=== PATIENT | male | born 1955 | race Caucasian/White ===

== ENCOUNTER 2017-11-14 12:07 | Emergency (ER) | payer OTHER ==
[2017-11-14 13:39] LABS: ABS Basophils 0 10^3/ul (0-0.2); ABS Eosinophils 0.1 10^3/ul (0-0.6); ABS Lymphocytes 0.3 10^3/ul (1.0-4.8); ABS Monocytes 0.7 10^3/ul (0-0.8); ABS Neutrophils 4.7 10^3/ul (1.5-7.7); ABS Nucleated RBC 0 10^3/ul; Eosinophil % 1.7 % (0-6); Hematocrit 27 % (42-52); Hemoglobin 8.9 g/dl (14.0-18.0); Lymphocyte % 4.7 % (25-47); Mean Corpuscular HGB Conc 33 g/dl (31-36); Mean Corpuscular Hemoglobin 31 pg (27-31); Mean Corpuscular Volume 94 fL (80-94); Mean Platelet Volume 8 um3 (7.4-10.4); Nucleated Red Blood Cells % 0.1; Platelet Count 210 10^3/ul (150-450); Red Blood Count 2.89 10^6/ul (4.0-5.4); Red Cell Distribution Width 18 % (10.5-15); White Blood Count 5.9 10^3/ul (3.5-10.8)
[2017-11-14 13:57] LABS: EGFR Non-African American 129.9 (>60)
--- NOTE | 2017-11-14 14:24 | RAD ---
INDICATION: Fatigue and hypotension, chest pain. COMPARISON: There are no prior studies available for comparison. TECHNIQUE: A portable view of the chest was obtained. The left costophrenic angle is cut off on the film limiting the study. FINDINGS: The heart appears to be within normal limits in size for this portable exam. There is a power port central venous catheter present. The catheter tip appears to project over the region of the right atrium. There is a small left upper lobe infiltrate. There is a trace right pleural effusion. IMPRESSION: 1. LIMITED STUDY. 2. SMALL LEFT UPPER LOBE INFILTRATE AND TRACE RIGHT PLEURAL EFFUSION.
[2017-11-14] MEDS ORDERED: Ciprofloxacin 400MG IVPREMIX(* 400 MG/200 ML BAG IVPB ONE (15:07)
[2017-11-14] MEDS ORDERED: Cefepime(*) 2 GM in NS 0.9% 50 ML* 50 ML IVPB ONE (15:07)
[2017-11-14] MEDS ORDERED: NS 0.9% 500 ML* 500 ML IV ONE (15:08)
[2017-11-14] MEDS ORDERED: Morphine INJ* 4 MG/ML 1 ML CARPUJECT IV ONE (15:12)
[2017-11-14] MEDS ORDERED: Ondansetron INJ* 2 MG/ML VIAL IV ONE (15:12)
[2017-11-14] MEDS: NS 0.9% 1000 ML* 2,000 ML IV ONE ×2 (15:39→15:40)
[2017-11-14] MEDS ORDERED: NS 0.9% 50 ML* 50 ML ONE (16:44)
[2017-11-14] MEDS ORDERED: Cefepime 2 GM in Dextrose(*) 2 GM/50 ML BAG IV ONE (17:00)
[2017-11-14] MEDS ORDERED: Magnesium Sulfate 2 GM IV* 2 GM/50 ML BAG IVPB ONE (17:29)
[2017-11-14 19:02] VITALS: BP 96/56
--- NOTE | 2017-11-14 21:39 | CONS ---
CC: Dr. Marks; fax #[phone]; Dr. Davidson * CONSULTATION REPORT: DATE OF CONSULT: 11/14/17 - EMERGENCY DEPT PROVIDER: Beatrice Wesley NP ATTENDING PHYSICIAN: Dr. Johnson (report dictated by Beatrice Wesley NP). REFERRING PHYSICIAN: Dr. Yost, Emergency Department. PRIMARY CARE PROVIDER: Dr. Marks. ONCOLOGIST: Dr. Babin oncologist at [facility]. REFERRING TO: Dr. Davidson, Sheet Taker. CONSULTATION REASON: Evaluation for admission for atrial fibrillation. HISTORY OF PRESENT ILLNESS: Mr. Aceves is a 62-year-old male with metastatic esophageal cancer, atrial fibrillation, PE and DVT, on Eliquis, who was at his oncologist, Dr. Babin's office today in [place], [place] for a followup and was found to have a heart rate of 145 and noted to be in rapid AFib and was recommended to go to the emergency department for further evaluation, in which the patient refused to do so. He was brought to [facility] Emergency Department by his daughter, who wanted him evaluated. In the Emergency Department at [facility], he was found to have a heart rate of 95 and was noted to be in sinus rhythm. The hospitalist service was asked to consult regarding possible admission as the patient also was noted to have a small left upper lobe infiltrate with possible pneumonia. The patient was evaluated in the emergency department. His daughter, Perlita King and his , Roxane Aceves, in which both of them are the healthcare proxies, who were at the bedside. The patient was adamant he did not want to stay for hospitalization and due to that he is back in a normal sinus rhythm and appears to be stable without any acute illness. I think it is reasonable the patient can be discharged home from the emergency department. In regards to the patient's possible small left upper lobe infiltrate, it is possible that this is pneumonia; however, I do have lower suspicion as he has no cough, fever , or chills. Reports lately, he has been in his baseline. In regards to the patient's atrial fibrillation, this is fairly new for him and he was diagnosed back in August when he was diagnosed with a PE and DVT and appears that he has been having paroxysmal atrial fibrillation. At that time, he was placed on metoprolol 50 mg p.o. daily. Per the patient, he crushes the pill and puts in his PEG tube and within 5 minutes, he feels terrible and has been noted by the and daughter that his blood pressure tends to drop systolically in the low 90s. The patient was planning on stopping this medication; however, he did have a dose this morning. The plan will be to send the patient home on metoprolol 12.5 mg p.o. b.i.d. and have him followup with Dr. Davidson. He is already anticoagulated on Eliquis. In regards to the patient's metastatic cancer, he just finished radiation on 06/30 and had a port placed, in which he is supposed to undergo chemotherapy; however, he has not been stable enough per his daughter to start chemo. He was hospitalized in [facility] approximately 2 weeks ago, where he had an 8- day hospitalization for possible GI bleed, which resolved on its own and the decision was to continue him on his Eliquis at that time. Per daughter on discharge of that hospitalization, he was supposed to be referred to fire observer, Dr. Davidson, but the daughter does not think that this happened on discharge. The patient does have a PEG tube placed and just was cleared in the last couple of days to take in thin liquids. Per daughter, she does not think that he is aspirating; however, I did discuss with them and recommend that he have a followup swallowing evaluation this week as she reports there was no plan for serial swallow evaluations in the future. PAST MEDICAL HISTORY: 1. PE and DVT, diagnosed in August 2017, currently on Eliquis. 2. Paroxysmal atrial fibrillation, diagnosed in August 2017. 3. History of metastatic esophageal cancer, diagnosed in 2016? status post PEG tube placement, completed his radiation treatment in early October. 4. Long-term history of tobacco and alcohol abuse. 5. History of recent GI bleed approximately 2 to 3 weeks ago, in which he had a hospitalization at [facility], in which he was discharged home on his Eliquis. CURRENT MEDICATIONS: 1. Multivitamin 1 tab p.o. daily. 2. Milk of magnesia 30 mL p.o. p.r.n. constipation. 3. Senna 1 tab p.o. b.i.d. 4. Lipitor 80 mg p.o. at bedtime. 5. Eliquis 5 mg p.o. b.i.d. 6. Oxycodone HCl 100 mg/5 mL, 1 mL p.o. q.4 hours p.r.n. 7. Metoprolol tartrate 50 mg p.o. b.i.d. 8. Omeprazole 20 mg p.o. b.i.d. 9. Reglan 5 mg p.o. t.i.d. ALLERGIES: No known allergies. ADVANCE DIRECTIVES: Full code. HEALTHCARE PROXY: His and daughter. REVIEW OF SYSTEMS: A 14-point review of systems was performed. All the pertinent positives and negatives are mentioned in the history of present illness. Otherwise are negative. PHYSICAL EXAMINATION: Vital Signs: Temperature 98.3, heart rate 90, respirations 18, pulse oximetry 98% on room air, blood pressure 102/69. General Appearance: Chronically ill 62-year-old male, sitting up in the side of emergency department bed, alert and oriented x3, in no acute distress. HEENT: Head is normocephalic, atraumatic. Pupils are equal and reactive to light. Oropharynx is clear. Moist mucous membranes. No noted oropharyngeal thrush. Neck: Supple. Cardiac: S1, S2. Regular rate and rhythm. Lungs: Clear to auscultation bilaterally. Good aeration throughout. No accessory muscle use. Abdomen: Soft, nontender, nondistended. There is a noted PEG tube intact with a clean, dry dressing. No noted erythema or skin breakdown around the PEG insertion site. Extremities: No clubbing, cyanosis, or edema noted. Skin: Warm, pink, dry. There is a noted right upper chest wall port that has a healing incision. No noted erythema or drainage. Appears to be healing well. Musculoskeletal: Moves all extremities. Strength is 5/5 throughout. Neuro: Alert and oriented x3. No focal deficits noted. RECOMMENDATIONS: I spoke with the patient and the daughter and the at length. At this point, the patient is stable to be discharged home from the emergency department. The plan will be to discharge him home on metoprolol 12.5 mg p.o. b.i.d. The and the daughter both take the vital signs and monitor him closely. The daughter is an RN. The patient will be referred to Dr. Davidson for a followup and the daughter plans to call Friday morning. He is currently anticoagulated on Eliquis. It is noted that his hemoglobin is low at 8.9 and 27; however, I do not have anything to compare to. There are no signs of any gastrointestinal bleeding. In regards to the patient's possible left upper lobe infiltrate, he has no obvious signs of pneumonia; however, the plan will be to treat the infiltrate in discussion with the attending physician and ER physician as well as a family. I have discussed this with Dr. Yost, who will be doing the discharge. The patient is to follow up with his primary care provider this week on , he has an appointment set previously. In the emergency department, he had electrolyte replacement for a magnesium of 1.6. The patient is stable to be discharged home from the emergency department, is not requiring admission at this time. BEATRICE WESLEY NP [id number]/RUI #: [id number] FANNY
--- NOTE | 2017-11-16 12:42 | ED ---
Celsa Stewart Julia, scribed for Jonathan Yost MD on 11/14/17 at 1512 . Complex/Multi-Sys Presentation - HPI Summary HPI Summary: This patient is a 62 year old M presenting to [facility] accompanied by and daughter with a chief complaint of chest pain, and a-fib and low BP . Pt reports mildly productive cough, dizziness, lightheaded, weak as of this morning. Patient denies changes in appetite. He is able to drink liquids but uses GI tube otherwise. The patient rates the pain 7/10 in severity. Pt was referred from Dr. Babin to see a heddle machine operator. Dr. Babin has discussed with Dr. Davidson about receive regular care. Daughter reports dx of esophageal CA (tumor 17.5 cm) around 2016 with metastases to left femur, liver, sternum , L4, L5 and lymph nodes. Pt receives radiation Comer. He was discharged from [facility] two weeks ago. He was there for seven days for a-fib and a GI bleed, for which he received 3 units of blood. His states his Hgb, Hct , and sodium are steady and improving. Pt has had PNA of R lower lung since 2016. Pt has history of PE. He was prescribed Metoprolol (50mg a day) when discharged from [facility]. - History Of Current Complaint Chief Complaint: EDChestPainROMI Time Seen by Provider: 11/14/17 13:41 Hx Obtained From: Patient, Family/Portrait Consultant Onset/Duration: Lasting Weeks, Still Present Timing: Constant Location: Pain At: - mid sternum Associated Signs And Symptoms: Positive: Other - a-fib and low BP productive cough, dizziness, lightheaded, weakness - Allergies/Home Medications Allergies/Adverse Reactions: Allergies Allergy/AdvReac Type Severity Reaction Status Date / Time No Known Allergies Allergy Verified 11/14/17 12:26 Home Medications: Home Medications Apixaban* [Eliquis*] 5 mg PO BID 11/14/17 [History Confirmed 11/14/17] Atorvastatin* [Lipitor*] 80 mg PO BEDTIME 11/14/17 [History Confirmed 11/14/17] Magnesium Hydroxide LIQ* [Milk of Magnesia LIQ*] 30 ml PO DAILY PRN 11/14/17 [ History Confirmed 11/14/17] Metoclopramide TAB* [Reglan TAB*] 5 mg PO TID 11/14/17 [History Confirmed ] Metoprolol Tartrate TAB* [Lopressor TAB*] 50 mg PO BID 11/14/17 [History Confirmed 11/14/17] Multivitamins/Minerals TAB* [Theragran/minerals TAB*] 1 tab PO DAILY 11/14/17 [ History Confirmed 11/14/17] Omeprazole CAP* [Prilosec CAP* 20 MG] 20 mg PO BID 11/14/17 [History Confirmed 11/14/17] Oxycodone HCl [Oxycodone HCl 100 mg/5 ml] 1 ml PO Q4HR PRN 11/14/17 [History Confirmed 11/14/17] Senna TAB* [Senokot TAB*] 1 tab PO BID 11/14/17 [History Confirmed 11/14/17] PMH/Surg Hx/FS Hx/Imm Hx Endocrine/Hematology History: Denies: Hx Diabetes Respiratory History: Reports: Hx Pneumonia, Hx Pulmonary Embolism - Cancer History Cancer Type, Location and Year: esophogeal CA with metastases to left femur, liver, sternum, L4, L5 and lymph nodes Infectious Disease History: No Infectious Disease History: Denies: Traveled Outside the [place] in Last 30 Days - Family History Known Family History: Positive: Diabetes - maternal - Social History Alcohol Use: None Alcohol Amount: none since August Substance Use Type: Reports: Marijuana, Prescribed Substance Use Comment - Amount & Last Used: Occassional Marijuana Smoking Status (MU): Light Every Day Tobacco Smoker Review of Systems Negative: Fever, Chills Negative: Erythema Negative: Sore Throat Cardiovascular: Other - low BP Positive: Palpitations - a-Fib, Chest Pain Positive: Cough. Negative: Shortness Of Breath Negative: Abdominal Pain, Vomiting, Nausea Negative: dysuria, hematuria Negative: Edema Negative: Rash Neurological: Other - dizziness/lightheaded All Other Systems Reviewed And Are Negative: Yes Physical Exam - Summary Physical Exam Summary: Constitutional: Well-developed, Well-nourished, Alert. (-) Distressed Skin: Warm, Dry HENT: Normocephalic; Atraumatic, dry mucous membranes Eyes: Conjunctiva normal Neck: Musculoskeletal ROM normal neck. (-) JVD, (-) Stridor, (-) Tracheal deviation Cardio: Rhythm regular, rate normal, Heart sounds normal; Intact distal pulses; The pedal pulses are 2+ and symmetric. Radial pulses are 2+ and symmetric. (-) Murmur Pulmonary/Chest wall: Effort normal. (-) Respiratory distress, (-) Wheezes, (-) Rales Abd: Soft, (-) Tenderness, (-) Distension, (-) Guarding, (-) Rebound Musculoskeletal: (-) Edema Lymph: (-) Cervical adenopathy Neuro: Alert, Oriented x3 Psych: Mood and affect Normal Triage Information Reviewed: Yes Vital Signs On Initial Exam: Initial Vitals Temp Pulse Resp BP Pulse Ox 97.8 F 99 18 91/61 99 11/14/17 12:12 11/14/17 12:12 11/14/17 12:12 11/14/17 12:12 11/14/17 12:12 Vital Signs Reviewed: Yes Diagnostics - Vital Signs Vital Signs Temp Pulse Resp BP Pulse Ox 11/14/17 14:30 89 22 92/65 100 11/14/17 14:00 88 22 90/62 100 11/14/17 13:35 13 97/65 11/14/17 12:12 97.8 F 99 18 91/61 99 - Laboratory Lab Results: Lab Results 11/14/17 11/14/17 11/14/17 Range/Units 13:30 13:30 13:30 WBC 5.9 (3.5-10.8) 10^3/ul RBC 2.89 L (4.0-5.4) 10^6/ul Hgb 8.9 L (14.0-18.0) g/dl Hct 27 L (42-52) % MCV 94 (80-94) fL MCH 31 (27-31) pg MCHC 33 (31-36) g/dl RDW 18 H (10.5-15) % Plt Count 210 (150-450) 10^3/ul MPV 8 (7.4-10.4) um3 Neut % (Auto) 81.0 (38-83) % Lymph % (Auto) 4.7 L (25-47) % Guthrie % (Auto) 12.1 H (1-9) % Eos % (Auto) 1.7 (0-6) % Baso % (Auto) 0.5 (0-2) % Absolute Neuts (auto) 4.7 (1.5-7.7) 10^3/ul Absolute Lymphs (auto) 0.3 L (1.0-4.8) 10^3/ul Absolute Monos (auto) 0.7 (0-0.8) 10^3/ul Absolute Eos (auto) 0.1 (0-0.6) 10^3/ul Absolute Basos (auto) 0 (0-0.2) 10^3/ul Absolute Nucleated RBC 0 10^3/ul Nucleated RBC % 0.1 Sodium 127 L (133-145) mmol/L Potassium 4.0 (3.5-5.0) mmol/L Chloride 98 L (101-111) mmol/L Carbon Dioxide 26 (22-32) mmol/L Anion Gap 3 (2-11) mmol/L BUN 11 (6-24) mg/dL Creatinine 0.63 L (0.67-1.17) mg/dL Est GFR ( Amer) 167.1 (>60) Est GFR (Non-Af Amer) 129.9 (>60) BUN/Creatinine Ratio 17.5 (8-20) Glucose 130 H (70-100) mg/dL Lactic Acid 1.3 (0.5-2.0) mmol/L Calcium 8.4 L (8.6-10.3) mg/dL Total Bilirubin 0.50 (0.2-1.0) mg/dL AST 12 L (13-39) U/L ALT 17 (7-52) U/L Alkaline Phosphatase 67 (34-104) U/L Troponin I 0.00 (<0.04) ng/mL Total Protein 6.7 (6.4-8.9) g/dL Albumin 2.5 L (3.2-5.2) g/dL Globulin 4.2 H (2-4) g/dL Albumin/Globulin Ratio 0.6 L (1-3) Result Diagrams: 11/14/17 13:30 11/14/17 13:30 Lab Statement: Any lab studies that have been ordered have been reviewed, and results considered in the medical decision making process. - Radiology CXR Radiology Interpretation Completed By: Radiologist - 1. LIMITED STUDY. 2. SMALL LEFT UPPER LOBE INFILTRATE AND TRACE RIGHT PLEURAL EFFUSION. ED Physician has reviewed this report. - EKG 1217 Cardiac Rate: NL - at 94 BPM EKG Rhythm: Sinus Rhythm EKG Interpretation: no STEMI Complex Multi-Symp Course/Dx Course Of Treatment: Pt presents with chest pain, a-fib and low BP . Pt reports mildly productive cough, dizziness, lightheaded, weak as of this morning. metastases to left femur, liver, sternum, L4, L5 and lymph nodes. Pt receives radiation Comer. He was discharged from [facility] two weeks ago. Pt has had PNA of R lower lung since 2016. He was prescribed Metoprolol (50mg a day) when discharged from [facility], two weeks ago. EKG is of no acute concern. CXR is indicitive of PNA in the L upper lung. Pt was given IV fluids, Zofran, magnesium, morphine, and cefepime. Pt was treated for flu despite negative flu test due to high pretest probability for influenza. Pt's BP improved to normotensive. Multiple calls to Dr. Davidson were made, none were returned (not senior controls technician). Dr. Black states no direct physician to physician communication occured. He states there is no need for cardio consult as pt is currently in NSR at 17:25. He was evaluated by hospitalist, Salome Mclean (BOILER SERVICE TECHNICIAN). She recommends discharge due to high risk of flu and flu burden in hospital. Pt and family is instructed to decrease Metoprolol to 12.5mg a day. Pt and family is agreeable with this plan. - Diagnoses Provider Diagnoses: PNA (pneumonia), Hypotension, Medication adverse effect Discharge - Discharge Plan Condition: Stable Disposition: HOME Prescriptions: Levofloxacin TAB* [Levaquin TAB*] 750 mg PO DAILY #5 tab Patient Education Materials: Hypotension (ED), Pneumonia (ED) Referrals: Marco A Marks MD [Primary Care Provider] - 2 Days Jose Davidson MD [Medical Doctor] - Additional Instructions: RETURN TO THE EMERGENCY DEPARTMENT FOR CHANGING OR WORSENING SYMPTOMS. Follow up with primary care provider in 2-3 days and follow up with Dr. Davidson Decrease Metoprolol to 12.5mg per day. The documentation as recorded by the Celsa escobar Julia accurately reflects the service I personally performed and the decisions made by , Jonathan Yost MD.
== END 2017-11-14 19:02 | disposition home or self-care (01) ==
LOC: ED 12:07
DX: J18.9 Pneumonia, unspecified organism (principal); I95.9 Hypotension, unspecified; T44.7X5A Adverse effect of beta-adrenoreceptor antagonists, initial encounter; R91.8 Other nonspecific abnormal finding of lung field; J90 Pleural effusion, not elsewhere classified; F17.200 Nicotine dependence, unspecified, uncomplicated
CPT/HCPCS: 36415; 71045; 80053; 83605; 83735; 84145; 84484; 85025; 86140; 93005; 96361; 96365; 96375; 96376; 99285; J0692; J0744; J2270; J2405; J3475

== ENCOUNTER 2017-12-25 12:07 | Inpatient (IN) | payer OTHER ==
[2017-12-25] MEDS ORDERED: Magnesium Sulf 4 GM/100 ML IV* 4,000 MG/100 ML BAG IVPB ONE (12:33)
[2017-12-25] MEDS ORDERED: fentaNYL PATCH 12 MCG/HR TRANSDERM SCH (13:00)
[2017-12-25] MEDS ORDERED: NS 0.9% w/ 40 Meq KCL 1000 ML* 1,000 ML IV SCH (13:00)
--- OUTSIDE RECORDS SUMMARY | 2017-12-25 13:56 | XMS REPORT ---
:1955 External Reference #:[id number] Author Organization [employer] Address [address] [place] [id number] Phone [phone] Care Team Providers Name Role Phone Marco A Marks MD Primary Care Physician Unavailable Payers Type Date Identification Numbers Payment Provider Subscriber Commercial Policy Number: [id number] [facility] George Aceves Group Number: [id number] [address] PayID: [id number] [place] [address] Problems Description No Information Social History Type Date Description Comments ETOH Use Denies alcohol use Recreational Drug Use Prescribed marijuana Smoking Light tobacco smoker (10 or fewer cigarettes/day) Allergies, Adverse Reactions, Alerts Date Description Reaction Status Severity Comments 12/03/2017 NKDA active 12/03/2017 Shellfish-derived Products active Medications Medication Date Status Form Strength Qnty SIG Indications Ordering Provider Amiodarone HCL 12/03 Active Tablets 200mg 60tab 1 by mouth I48.1 s twice a day Rubin Davidson, for 2 weeks M.DSunshine the one a day Jevity 1.5 Rikki 12/02 Active Liquid 3 can/day, weaning off Rubin Davidson M.D. Metoprolol Active Tablets 50mg 12.5 mg Unknown Tartrate /0000 (10/16 tab) by g tube twice a day Sennosides Active Tablets 8.6mg 1 po bid Unknown /0000 Eliquis 00 Active Tablets 5mg 1 by mouth Unknown /0000 once a day Omeprazole Active Capsules DR 20mg 1 by mouth Unknown /0000 twice every day Ondansetron Active Tablets 4mg dissolve Unknown /0000 Dispers one tablet orally every 6 hours as needed for nausea. Oxycodone HCL Active Solution 5mg/5ML 15 Unknown /0000 milliliters by mouth every 4 hours as needed pain (not using) Oxycodone HCL Active Concentrate 100mg/5ML take 1 Unknown /0000 milliliters by mouth every 4 hours as needed for cough, maximum6 ml per day Milk Of Active Suspension 7.75% 30 Unknown Magnesia /0000 milliliters oral every day as needed for constipatio n. Metoclopramide Active Tablets 5mg one tablet Unknown HCL /0000 Dispers every 8 hours Thera Vital M Active Tablets 1 by mouth Unknown /0000 every day Amoxicillin/Cla Hx Suspension 400-57mg/ 10.94 Unknown vulanate /0000 Rec 5ML milliliters Potassium - by g 12/02 tubetwice a day for 4 days Atorvastatin Hx Tablets 80mg 1 by mouth Unknown Calcium /0000 every day - 12/02 Fentanyl Hx Patches 72HR 25mcg/HR apply one Unknown /0000 patch once - every 3 Jevity 1 Rikki Hx Liquid at night Unknown /0000 thru g tube - 12/[address] Adult Hx [address] 81mg 1 by mouth Unknown Low Dose /0000 every day - 12/02 Levofloxacin Hx Tablets 750mg 1 by mouth Unknown /0000 every day - 12/02 Vital Signs Date Vital Result Comment 12/03/2017 Weight 176.00 lb Heart Rate 76 /min irreg BP Systolic 70 mmHg Rue reg cu BP Diastolic 52 mmHg Rue reg cu BP Systolic Sitting 72 mmHg Lue reg cuff BP Diastolic Sitting 50 mmHg Lue reg cuff BP Systolic Standing 66 mmHg Lue reg cuff BP Diastolic Standing 60 mmHg Lue reg cuff Respiratory Rate 15 /min Results Description No Information Procedures Date CPT Code Description Status 12/03/2017 18850 EKG Tracing & Interpretation Completed 04/20/2015 Colonoscopy Completed 05/18/2012 86721 Rad Exam; Foot Comp Completed 05/18/2012 37012 Rad Exam; Foot Limited Completed 04/13/2012 73670 Rad Exam; Foot Comp Completed 03/02/2012 86619 Amputation Toe MP JT Completed 03/02/2012 82567 Amputation Toe MP JT Completed 03/02/2012 69621 Amputation Toe MP JT Completed Encounters Type Date Location Provider CPT E/M Dx Office Visit 12/03/[address] [facility] Jose Davidson, 51578 R94.31 2:00p Teja Valadez I48.1 I95.1 Office Visit 08/17/2012 9:30a [facility], [address]58 895.0 C.MSeamus Valadez Office Visit 06/08/2012 9:15a [facility], 840[address] 895.0 C.M.Camille Valadez Plan of Care Future Appointment(s):12/30/2017 1:00 pm - Jose Davidson M.D. at [facility]12/16/2017 9:30 am - Jose Davidson M.D. at [facility]12/03/2017 - Jose Davidson M.D.R94.31 Abnormal electrocardiogram [ECG] [EKG]I48.1 Persistent atrial fibrillationNew Medication: Amiodarone HCL 200 mgNew Orders:CardioversionFollow up:1 rpvsmH90.1 Orthostatic hypotension
[2017-12-25] MEDS: Scopolamine 1.5 mg* PATCH TRANSDERM SCH ×2 (15:37→15:38)
[2017-12-25] MEDS ORDERED: Metoprolol Tartrate IV* 1 MG/ML 5 ML VIAL IV PRN (15:46)
[2017-12-25] MEDS: Morphine INJ* 2 MG/ML 1 ML CARPUJECT IV PRN ×2 (16:02→20:24)
[2017-12-25] MEDS: oxyCODONE ORAL.SOLN* 5 MG/5 ML UDC PRN ×2 (17:28→22:46)
[2017-12-25] MEDS: Metoclopramide TAB* 10 MG G TUBE SCH ×2 (17:29→23:10)
--- NOTE | 2017-12-25 18:11 | CONSULT ---
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 Davidson CC: Reason for consult: Atrial fibrillation SUBJECTIVE Mr. Aceves is a 62 year old man with a history of esophageal cancer and G tube , pulmonary embolism diagnosed late 2016 on eliquis, paroxysmal atrial fibrillation of questionable symptom status on amiodarone for rate/rhythm control. Patient is currently lethargic and unable to provide a history. History was provided by his daughter who is healthcare proxy and who are both at bedside. They have not noticed any recent tachycardia with vital signs. He was admitted from the hematology clinic with pancytopenia and severe electrolyte abnormalities as below and also with small bowel obstruction. He is receiving pRBC transfusion, electrolyte replacement and bowel rest. IV lopressor brought HR into 120's from nearly 150 but dropped BP to 85/56 from 100 /72. He had decreased eliquis from bid to qd at one point due ot what they decribe as coffee ground emesis and this improved after that but returned when increased back to BID. His daughter feels very uncomfortable with him continuing on NOAC due to no approved reversal agent. We could use pradaxa as it has an FDA approved reversal agent, other NOAC also have non-FDA approved reversal agents, we could even consider lower dose off label NOAC usage. She feels strongly about changing to warfarin which is ok from a cardiac standpoint. medication list reviewed verbally and bottles on 12/03/2017 Allergies:No Known Drug Allergy 12/03/17 Shellfish-derived Products 12/03/17 allergy list reviewed on 12/03/2017 Medical Problems: Hypertension Achalasia Esophageal Disorder - stricture Back Pain severe malnutrition Esophagus Cancer Pulmonary Embolism Anemia - acute blood loss Atrial Fibrillation Surgical Hx: EGD with biopsies - (09/15/2017) Transanal resection of low rectal polyp - (2014) Hand Surgery - L arthroplasty Gastric Feeding Tube - (09/15/2017) Port A cath insertion Toe Amputation - left 2009 FH: non-contributory SH: Personal Habits: Smoking: Light tobacco smoker (10 or fewer cigarettes/day) .Alcohol: Denies alcohol use.Drug Use: Prescribed marijuana. Medications Active Medications: Amiodarone HCl (Cordarone Tab*) 200 mg PO DAILY [facility] Fentanyl (Duragesic Patch 12 Mcg/Hr *) 12 mcg TRANSDERM Q72H [facility] Last Admin: 12/25/17 14:18 Dose: 12 mcg Heparin Sodium (Porcine) (Heparin Flush Port (Ivad)) 5 ml FLUSH DAILY [facility] PRN Reason: Protocol Potassium Chloride/Sodium Chloride (Ns 0.9% W/ 40 Meq Kcl 1000 Ml*) 1,000 mls @ 75 mls/hr IV PER RATE [facility] Metoclopramide HCl (Reglan Tab*) 5 mg G TUBE Q8H [facility] Last Admin: 12/25/17 17:29 Dose: 5 mg Metoprolol Tartrate (Lopressor Iv*) 5 mg IV Q6H PRN PRN Reason: BLOOD PRESSURE Last Admin: 12/25/17 16:02 Dose: 5 mg Morphine Sulfate (Morphine Inj (Syringe)*) 2 mg IV Q4H PRN PRN Reason: PAIN Last Admin: 12/25/17 16:02 Dose: 2 mg Ondansetron HCl (Zofran Inj*) 4 mg IV Q4H PRN PRN Reason: NAUSEA/VOMITING Oxycodone HCl (Oxycodone Oral.Soln*) 20 mg .SEE ORDER Q4H PRN PRN Reason: PAIN Last Admin: 12/25/17 17:28 Dose: 20 mg Pantoprazole Sodium (Protonix Iv*) 40 mg IV DAILY [facility] Pharmacy Profile Note (Fentanyl Patch Check Q Shift) 1 note N/A 0700,1900 [facility] Scopolamine (Transderm-Scop 1.5 Mg Patch*) 1 patch TRANSDERM Q72H [facility] Last Admin: 12/25/17 15:38 Dose: 1 patch Home Medications: Apixaban* [Eliquis*] 5 g G TUBE DAILY 11/14/17 [History Confirmed 12/25/17] Magnesium Hydroxide LIQ* [Milk of Magnesia LIQ*] 30 ml G TUBE DAILY PRN [History Confirmed 12/25/17] Metoclopramide TAB* [Reglan TAB*] 5 mg G TUBE Q8H 11/14/17 [History Confirmed ] Multivitamins/Minerals TAB* [Theragran/minerals TAB*] 1 tab G TUBE DAILY [History Confirmed 12/25/17] Oxycodone HCl [Oxycodone HCl 100 mg/5 ml] 1 ml G TUBE Q4HR PRN 11/14/17 [ History Confirmed 12/25/17] Senna TAB* [Senokot TAB*] 1 tab G TUBE BID 11/14/17 [History Confirmed 12/25/17] Amiodarone TAB* [Cordarone Tab*] 200 mg PO DAILY 12/16/17 [History Confirmed ] Famotidine SUSP* [Pepcid SUSP*] 20 mg J TUBE BID 12/16/17 [History Confirmed ] Potassium Chloride LIQUID* [Klor-Con LIQUID*] 20 meq G TUBE DAILY 12/25/17 [ History Confirmed 12/25/17] Review of Systems - Measurements Intake and Output: Intake and Output Last 24 Hours 12/23/17 12/24/17 12/25/17 12/26/17 06:59 06:59 06:59 06:59 Intake Total 0 Balance 0 Weight 178 lb 3.2 oz Intake: Oral 0 - Review of Systems Review of Systems Statement: unable to obtain ROS due to mental status Objective Vital Signs: Temp Pulse Resp BP Pulse Ox 98.3 F 122 20 85/56 99 12/25/17 15:22 12/25/17 15:22 12/25/17 17:28 12/25/17 15:22 12/25/17 15:22 Oxygen Devices in Use Now: None Appearance: ill appearing, lethargic Ears/Nose/Mouth/Throat: Clear Oropharnyx, Mucous Membranes Moist Neck: NL Appearance and Movements; NL JVP, Trachea Midline Respiratory: Symmetrical Chest Expansion and Respiratory Effort Cardiovascular: - - irregularly irreuglar, tachycardic, no isgnificant murmur, mild edema Abdominal: NL Sounds; No Tenderness; No Distention Extremities: No Clubbing, Cyanosis Skin: No Rash or Ulcers Neurological: - - lethargic, does not cooperate with exam Laboratory Results: 12/25/2017: wbc 0.6, hgb 7.5, plts 89 Na 118, k 3.4, cr 0.49 mg 1.5 alk phos 106, albumin 2.5 otherwise lft's normal Diagnostic Imaging: Cardiac Testing: Echocardiogram - (09/16/2017) This was a limited study for assessment of right heart size and function. Normal LV systolic function with no regional wall motion abnormalities and estimated LVEF 55-60%. Normal right chowdhury size and RV contractility. Trace pericardial effusion. Echocardiogram - (09/17/2017) Bubble study is inconclusive of interatrial shunt/PFO. LV cavity size and thickness is normal. No regional wall motion abnormalities. No evidence of LVOT obstruction. Global systolic function is normal, with an estimated EF 60-65%. Echocardiogram - (10/28/2017) Patient was in afib/flutter during the study with rapid heart rates. EF 55-60%. Mild MR. Small pericardial effusion. Pleural effusion is noted. Assuming RA pressure of 5 mm Hg, estimated pulmonary artery systolic pressure is 31 mmHg ( normal). Compared to recent TTE's from 09/2017, pleural effusion is now present. CT C/A/P 12/10/2017: findings consistent with esophageal carcinoma mild mediastinal adenopathy new or increasing b/l effusios R liver lobe and retroperitoneal adenopathy unchanged from prior multiple l3/l4 and new l1 bony lytic lesions asymmetric right changes enlargmeent under scapula may represent metastatic disease EKG Data: 12/25/2017: Rapid afib 147 bpm, rate related st changes 12/16/2017: NSR, LAE, rsr' v1/v2 Assessment/Plan Regarding patients atrial fibrillation, I would recommend: - Continue amiodarone 200 mg PO daily for rate/rhythm control - Start metoprolol through G tube 25 mg PO TID (ordered) with 25 mg PRN for rate control. Would hold off on further IV rate control medication. pRBC transfusion should help raise BP - Replace K and Mg to 4 and 2 respectively at least, he may convert to NSR with this - Other medical care per primary service - Once stable from a hematologic standpoint and no active bleeding would start warfarin goal INR 2-3 (see HPI for discussion) Thank you for allowing me to participate in the cardiovascular care of this patient. Please do not hesitate to contact me with questions or concerns.
[2017-12-25] MEDS ORDERED: Metoprolol Tartrate TAB* 25 MG PO PRN (18:17)
[2017-12-25] MEDS: Pantoprazole IV* 40 MG IV SCH (18:19)
[2017-12-25] MEDS: fentaNYL Patch Check Q Shift 1 NOTE SCH (19:27)
[2017-12-25] MEDS: Metoprolol Tartrate TAB* 25 MG PO SCH ×2 (19:31→20:57)
[2017-12-25] MEDS: NS 0.9% w/ 40 Meq KCL 1000 ML* 1,000 ML IV SCH (20:15)
[2017-12-25] MEDS: Ondansetron INJ* 2 MG/ML VIAL IV PRN (20:24)
--- NOTE | 2017-12-25 20:27 | RAD ---
INDICATION: Constipation, tenderness and distention. COMPARISON: Comparison is made with a prior outside study from November 07, 2017. TECHNIQUE: Supine and decubitus views of the abdomen were obtained. FINDINGS: The small bowel and colon appear nondistended. No free intraperitoneal air is seen. There is a moderate amount retained stool with a large amount of stool present within the rectosigmoid colon. No abnormal calcifications are seen. IMPRESSION: MODERATE AMOUNT RETAINED STOOL WITH A LARGE AMOUNT OF STOOL IN THE RECTOSIGMOID COLON.
[2017-12-26] MEDS ORDERED: Metoprolol Tartrate IV* 1 MG/ML 5 ML VIAL IV ONE (02:00)
[2017-12-26] MEDS: Metoprolol Tartrate TAB* 25 MG PO SCH (02:05)
[2017-12-26] MEDS: Ondansetron INJ* 2 MG/ML VIAL IV PRN ×2 (04:28→13:01)
[2017-12-26] MEDS: NS 0.9% w/ 40 Meq KCL 1000 ML* 1,000 ML IV SCH ×2 (04:29→17:11)
[2017-12-26] MEDS: Morphine INJ* 2 MG/ML 1 ML CARPUJECT IV PRN ×2 (04:29→10:04)
[2017-12-26 07:05] LABS: EGFR Non-African American 134.8 (>60)
[2017-12-26 07:13] LABS: Hematocrit 24 % (42-52); Hemoglobin 8.3 g/dl (14.0-18.0); Mean Corpuscular HGB Conc 34 g/dl (31-36); Mean Corpuscular Hemoglobin 27 pg (27-31); Mean Corpuscular Volume 80 fL (80-94); Mean Platelet Volume 9 um3 (7.4-10.4); Platelet Count 84 10^3/ul (150-450); Red Blood Count 3.06 10^6/ul (4.0-5.4); Red Cell Distribution Width 18 % (10.5-15); White Blood Count 0.2 10^3/ul (3.5-10.8)
[2017-12-26] MEDS: fentaNYL Patch Check Q Shift 1 NOTE SCH ×2 (07:16→19:24)
[2017-12-26 08:49] LABS: ABS Basophils 0 10^3/ul (0-0.2); ABS Eosinophils 0 10^3/ul (0-0.6); ABS Lymphocytes 0.1 10^3/ul (1.0-4.8); ABS Monocytes 0.1 10^3/ul (0-0.8); ABS Neutrophils 0.1 10^3/ul (1.5-7.7); ABS Nucleated RBC 0 10^3/ul; Eosinophil % 1.6 % (0-6); Lymphocyte % 27.1 % (25-47); Nucleated Red Blood Cells % 0
[2017-12-26] MEDS ORDERED: Amiodarone TAB* 200 MG PO SCH (09:00)
[2017-12-26] MEDS ORDERED: Polyethylene Glycol 3350* 17 GM PACKET G TUBE ONE (09:45)
[2017-12-26] MEDS ORDERED: Sodium Phosphate ADULT ENEMA* 118 ml bottle PR ONE (09:45)
[2017-12-26] MEDS ORDERED: Metoprolol Tartrate IV* 1 MG/ML 5 ML VIAL IV PRN (10:28)
[2017-12-26] MEDS ORDERED: Metoclopramide IV* 5 MG/ML 2 ML VIAL IV PRN (10:31)
[2017-12-26] MEDS: Metoclopramide TAB* 10 MG G TUBE SCH (10:32)
[2017-12-26] MEDS ORDERED: Magnesium Sulfate IV* 3 GM in NS 0.9% 100 ML* 100 ML IVPB ONE (10:33)
--- NOTE | 2017-12-26 10:45 | PN ---
Progress Note - Progress Note Date of Service: 12/26/17 SOAP: Subjective: []chemotherapy one week ago and did well first 2 days. Then progressive nausea, fatigue and then mental status changes. Office with pancytopenia, hyponatremia, low Mg and K. Rapid afib. Stable today, appears comfortable. No vomiting, no BM. He tried to manually dis impact himself this am. Daughter in room with him. No fevers Amiodarone HCl (Cordarone Tab*) 200 mg PO DAILY [facility] Fentanyl (Duragesic Patch 12 Mcg/Hr *) 12 mcg TRANSDERM Q72H [facility] Last Admin: 12/25/17 14:18 Dose: 12 mcg Filgrastim (Neupogen(Nf)) 480 mcg SUBCUT DAILY [facility] Stop: 01/01/18 08:59 Heparin Sodium (Porcine) (Heparin Flush Port (Ivad)) 5 ml FLUSH DAILY [facility] PRN Reason: Protocol Potassium Chloride/Sodium Chloride (Ns 0.9% W/ 40 Meq Kcl 1000 Ml*) 1,000 mls @ 100 mls/hr IV PER RATE [facility] Levofloxacin/Dextrose (Levaquin 500 Mg Ivpremix(*)) 500 mg in 100 mls @ 100 mls /hr IVPB Q24H [facility] Magnesium Sulfate 3 gm/ Sodium (Chloride) 106 mls @ 53 mls/hr IVPB ONCE ONE Stop: 12/26/17 12:32 Metoclopramide HCl (Reglan Iv*) 10 mg IV Q6H PRN PRN Reason: NAUSEA/VOMITING Metoprolol Tartrate (Lopressor Iv*) 5 mg IV Q6H PRN PRN Reason: BLOOD PRESSURE Morphine Sulfate (Morphine Inj (Syringe)*) 2 mg IV Q4H PRN PRN Reason: PAIN Last Admin: 12/26/17 10:04 Dose: 2 mg Ondansetron HCl (Zofran Inj*) 4 mg IV Q4H PRN PRN Reason: NAUSEA/VOMITING Last Admin: 12/26/17 04:28 Dose: 4 mg Oxycodone HCl (Oxycodone Oral.Soln*) 20 mg .SEE ORDER Q4H PRN PRN Reason: PAIN Last Admin: 12/25/17 22:46 Dose: 20 mg Pantoprazole Sodium (Protonix Iv*) 40 mg IV DAILY [facility] Last Admin: 12/25/17 18:19 Dose: 40 mg Pharmacy Profile Note (Fentanyl Patch Check Q Shift) 1 note N/A 0700,1900 [facility] Last Admin: 12/26/17 07:16 Dose: 1 note Objective: [] Vital Signs Temp Pulse Resp BP Pulse Ox 98.2 F 102 18 112/62 93 12/26/17 04:28 12/26/17 04:28 12/26/17 10:04 12/26/17 04:28 12/26/17 04:28 HEENT: mouth dry, no lesions No JVD RRR S1S2 in 80s CTA + but decreased BS, non tender, stool palpable lower abd PGG, bile filled Ext Tr edema Neuro - responsive but sleeping mostly Assessment: []62 year old with esophageal cancer and a-fib. Presents on day 8 of cycle 1 Carbo/Taxol with impacted bowl, dehydration and electrolyte disturbance as well as pancytopenia. I suspect ileus second to neutropenia compounded by dehydration and stool impaction. Plan: []1. Pancytopenia - Tx 1 U PRBC - Neupogen 480 mcg daily - plts stable 2. GI. - Given Miralax - Will allow Fleet enema though neutropenic - NPO until improved GI f(x) but can give medication through PEG - Reglan 10 mg IV q 6 and hold scopalamine 3. FEN. - IVF at 100 cc per hr - Replete Mg today 3 gm IV 4. Cardiac - Amiodarone per PEG - Will give Metoprolol 5 mg IV q 6 5. ID. Levoquin 500 mg daily for colitis.
[2017-12-26] MEDS ORDERED: Levofloxacin 500 MG IVPREMIX(* 500 MG/100 ML BAG IVPB SCH (11:00)
[2017-12-26] MEDS ORDERED: Magnesium Sulfate 2 GM IV IVPB ONE (11:00)
[2017-12-26] MEDS: Pantoprazole IV* 40 MG IV SCH (11:25)
[2017-12-26] MEDS ORDERED: Magnesium Sulfate 1 GM IV* 1 GM/100 ML BAG IV ONE (12:00)
[2017-12-26] MEDS: Metoclopramide IV* 5 MG/ML 2 ML VIAL IV SCH ×2 (17:11→21:25)
[2017-12-27] MEDS: Morphine INJ* 2 MG/ML 1 ML CARPUJECT IV PRN ×2 (03:38→07:47)
[2017-12-27] MEDS ORDERED: CEFEPIME* 2 GM in Dextrose* 50 ml IV ONE (04:00)
[2017-12-27 04:41] LABS: Hematocrit 21 % (42-52); Hemoglobin 7.1 g/dl (14.0-18.0); Mean Corpuscular HGB Conc 34 g/dl (31-36); Mean Corpuscular Hemoglobin 27 pg (27-31); Mean Corpuscular Volume 81 fL (80-94); Mean Platelet Volume 8 um3 (7.4-10.4); Platelet Count 64 10^3/ul (150-450); Red Blood Count 2.61 10^6/ul (4.0-5.4); Red Cell Distribution Width 18 % (10.5-15); White Blood Count 0.2 10^3/ul (3.5-10.8)
[2017-12-27 04:43] LABS: EGFR Non-African American 140.1 (>60)
[2017-12-27 05:39] LABS: Monocytes % 48 % (0-7)
[2017-12-27] MEDS: fentaNYL Patch Check Q Shift 1 NOTE SCH ×2 (07:04→18:39)
[2017-12-27] MEDS: Metoclopramide IV* 5 MG/ML 2 ML VIAL IV SCH ×4 (08:49→21:55)
[2017-12-27] MEDS: FILGRASTIM-SNDZ* 480 MCG/0.8 ML SYRINGE SUBCUT SCH (08:49)
[2017-12-27] MEDS: Pantoprazole IV* 40 MG IV SCH (08:49)
[2017-12-27] MEDS: Cefepime 2 GM in Dextrose(*) 2 GM/50 ML BAG IV SCH ×2 (08:49→16:23)
[2017-12-27] MEDS: Amiodarone TAB* 200 MG G TUBE SCH (08:49)
[2017-12-27] MEDS: NS 0.9% w/ 40 Meq KCL 1000 ML* 1,000 ML IV SCH (08:50)
--- NOTE | 2017-12-27 08:57 | PN ---
Progress Note - Progress Note Date of Service: 12/27/17 SOAP: Subjective: []Better today. Had 4 BM yesterday. Dry mouth, no nausea. Pain has been an issues. No fevers. No SOB Amiodarone HCl (Cordarone Tab*) 200 mg G TUBE DAILY [facility] Last Admin: 12/27/17 08:49 Dose: 200 mg Fentanyl (Duragesic Patch 12 Mcg/Hr *) 25 mcg TRANSDERM Q72H [facility] Filgrastim-Sndz (Zarxio*) 480 mcg SUBCUT DAILY [facility] Stop: 01/01/18 08:59 Last Admin: 12/27/17 08:49 Dose: 480 mcg Heparin Sodium (Porcine) (Heparin Flush Port (Ivad)) 5 ml FLUSH DAILY [facility] PRN Reason: Protocol Last Admin: 12/26/17 11:09 Dose: Not Given Cefepime HCl (Maxipime 2 Gm In Dextrose Duplex (*)) 2 gm in 50 mls @ 100 mls/ hr IV Q8H [facility] Last Admin: 12/27/17 08:49 Dose: 100 mls/hr Magnesium Sulfate (Magnesium Sulf 4 Gm/100 Ml Iv*) 4,000 mg in 100 mls @ 33.333 mls/hr IVPB ONCE ONE Stop: 12/27/17 11:49 Sodium Chloride (Ns 0.9% 1000 Ml*) 1,000 mls @ 150 mls/hr IV PER RATE [facility] Metoclopramide HCl (Reglan Iv*) 10 mg IV QID [facility] Last Admin: 12/27/17 08:49 Dose: 10 mg Metoprolol Tartrate (Lopressor Iv*) 5 mg IV Q6H PRN PRN Reason: BLOOD PRESSURE Morphine Sulfate (Morphine Inj (Syringe)*) 2 mg IV Q4H PRN PRN Reason: PAIN Last Admin: 12/27/17 07:47 Dose: 2 mg Ondansetron HCl (Zofran Inj*) 4 mg IV Q4H PRN PRN Reason: NAUSEA/VOMITING Last Admin: 12/26/17 13:01 Dose: 4 mg Oxycodone HCl (Oxycodone Oral.Soln*) 20 mg .SEE ORDER Q4H PRN PRN Reason: PAIN Last Admin: 12/25/17 22:46 Dose: 20 mg Pantoprazole Sodium (Protonix Iv*) 40 mg IV DAILY [facility] Last Admin: 12/27/17 08:49 Dose: 40 mg Pharmacy Profile Note (Fentanyl Patch Check Q Shift) 1 note N/A 0700,1900 [facility] Last Admin: 12/27/17 07:04 Dose: 1 note Senna/Docusate Sodium (Sennokot-S(Nf)) 1 tab PO BEDTIME [facility] Objective: []Vital Signs Temp Pulse Resp BP Pulse Ox 99.7 F 97 20 97/54 97 12/27/17 07:21 12/27/17 07:21 12/27/17 08:50 12/27/17 07:21 12/27/17 07:21 HEENT: mouth dry, no lesions No JVD RRR S1S2 in 80s CTA Increased BS from yesterday, mild tenderness. PGG, bile filled Ext Tr edema Neuro - responsive but sleeping mostly Assessment: []62 year old with esophageal cancer and a-fib. Presents on day 8 of cycle 1 Carbo/Taxol with impacted bowl, dehydration and electrolyte disturbance as well as pancytopenia. I suspect ileus second to neutropenia compounded by dehydration and stool impaction. Today improved BM and feels better, improved BS but still with high residuals in PEG. Plan: []1. Progressive anemia. ddx: marrow suppression and hydration vs loss from esophageal tumor. - Tx 2 U PRBC - IV PPI 2. Pancytopenia. No improvement - Neupogen 480 mcg daily 2. Constipation. - Given Miralax add Zee/Colace - NPO until improved GI f(x) but can give medication through PEG - Reglan 10 mg IV q 6 3. FEN. - IVF at 150 cc per hr - Replete Mg today 4 gm IV - Stop IV potassium 4. Cardiac - Amiodarone per PEG - Will give Metoprolol 5 mg IV q 6 5. ID. Fever, now on Cefepime and cultures pending. 6. Pain. Increase Fentanyl to 25 mcg
[2017-12-27] MEDS ORDERED: Magnesium Sulf 4 GM/100 ML IV* 4,000 MG/100 ML BAG IVPB ONE (09:00)
[2017-12-27] MEDS ORDERED: fentaNYL PATCH 12 MCG/HR TRANSDERM SCH (09:00)
[2017-12-27] MEDS: oxyCODONE ORAL.SOLN* 5 MG/5 ML UDC PRN ×3 (09:07→18:39)
[2017-12-27] MEDS: fentaNYL PATCH 25 MCG/HR TRANSDERM SCH (10:07)
[2017-12-27] MEDS: NS 0.9% 1000 ML* 1,000 ML IV SCH ×2 (10:10→22:07)
[2017-12-27] MEDS ORDERED: Metoprolol Tartrate IV* 1 MG/ML 5 ML VIAL IV ONE (15:00)
[2017-12-27] MEDS: Metoprolol Tartrate IV* 1 MG/ML 5 ML VIAL IV PRN ×2 (20:17→21:54)
[2017-12-27] MEDS ORDERED: Docusate CAP* 100 MG PO SCH (21:00)
[2017-12-27] MEDS: Senna TAB PO SCH (22:07)
[2017-12-28] MEDS: Cefepime 2 GM in Dextrose(*) 2 GM/50 ML BAG IV SCH ×3 (00:16→15:23)
[2017-12-28] MEDS: Metoprolol Tartrate IV* 1 MG/ML 5 ML VIAL IV PRN (05:34)
[2017-12-28 06:26] LABS: EGFR Non-African American 148.8 (>60)
[2017-12-28 06:27] LABS: ABS Basophils 0 10^3/ul (0-0.2); ABS Eosinophils 0 10^3/ul (0-0.6); ABS Lymphocytes 0.1 10^3/ul (1.0-4.8); ABS Monocytes 0.4 10^3/ul (0-0.8); ABS Neutrophils 0.3 10^3/ul (1.5-7.7); ABS Nucleated RBC 0 10^3/ul
[2017-12-28 06:50] LABS: Monocytes % 43 % (0-7)
[2017-12-28 06:51] LABS: Eosinophil % 2.5 % (0-6); Hematocrit 31 % (42-52); Hemoglobin 10.6 g/dl (14.0-18.0); Lymphocyte % 18.3 % (25-47); Mean Corpuscular HGB Conc 34 g/dl (31-36); Mean Corpuscular Hemoglobin 28 pg (27-31); Mean Corpuscular Volume 83 fL (80-94); Mean Platelet Volume 8 um3 (7.4-10.4); Platelet Count 83 10^3/ul (150-450); Red Cell Distribution Width 18 % (10.5-15); White Blood Count 0.8 10^3/ul (3.5-10.8)
[2017-12-28] MEDS: fentaNYL Patch Check Q Shift 1 NOTE SCH ×2 (07:04→19:05)
[2017-12-28] MEDS: oxyCODONE ORAL.SOLN* 5 MG/5 ML UDC PRN ×3 (07:27→20:41)
[2017-12-28] MEDS: Enoxaparin(*) 80 MG/0.8 ML SYR SUBCUT SCH ×2 (09:03→20:40)
[2017-12-28] MEDS: Metoclopramide IV* 5 MG/ML 2 ML VIAL IV SCH (09:04)
[2017-12-28] MEDS: Pantoprazole IV* 40 MG IV SCH (09:04)
[2017-12-28] MEDS: FILGRASTIM-SNDZ* 480 MCG/0.8 ML SYRINGE SUBCUT SCH (09:04)
[2017-12-28] MEDS: Amiodarone TAB* 200 MG G TUBE SCH (09:04)
[2017-12-28] MEDS ORDERED: Metoprolol Tartrate IV* 1 MG/ML 5 ML VIAL IV ONE (10:00)
[2017-12-28] MEDS ORDERED: Furosemide IV* 10 MG/ML 2 ML VIAL (20 MG) IV ONE (10:19)
[2017-12-28] MEDS ORDERED: Magnesium Sulf 4 GM/100 ML IV* 4,000 MG/100 ML BAG IVPB ONE (10:20)
[2017-12-28] MEDS ORDERED: Metoclopramide TAB* 10 MG PO PRN (10:27)
--- NOTE | 2017-12-28 10:27 | PN ---
Progress Note - Progress Note Date of Service: 12/28/17 SOAP: Subjective: []Weak and wants to eat. Better overall. Has had high HR. Bowls moved. Not in pain. Breathing has been fine. No nausea. Not walking much, is up in chair this am. Amiodarone HCl (Cordarone Tab*) 200 mg G TUBE DAILY [facility] Last Admin: 12/28/17 09:04 Dose: 200 mg Docusate Sodium (Colace Liq*) 100 mg PO BEDTIME [facility] Enoxaparin Sodium (Lovenox(*)) 80 mg SUBCUT Q12H [facility] Last Admin: 12/28/17 09:03 Dose: 80 mg Fentanyl (Duragesic Patch 25 Mcg/Hr*) 25 mcg TRANSDERM Q72H [facility] Last Admin: 12/27/17 10:07 Dose: 25 mcg Filgrastim-Sndz (Zarxio*) 480 mcg SUBCUT DAILY [facility] Stop: 01/01/18 08:59 Last Admin: 12/28/17 09:04 Dose: 480 mcg Furosemide (Lasix Iv*) 20 mg IV ONCE ONE Stop: 12/28/17 10:20 Heparin Sodium (Porcine) (Heparin Flush Port (Ivad)) 5 ml FLUSH DAILY [facility] PRN Reason: Protocol Last Admin: 12/28/17 09:04 Dose: Not Given Cefepime HCl (Maxipime 2 Gm In Dextrose Duplex (*)) 2 gm in 50 mls @ 100 mls/ hr IV Q8H [facility] Last Admin: 12/28/17 07:28 Dose: 100 mls/hr Magnesium Sulfate (Magnesium Sulf 4 Gm/100 Ml Iv*) 4,000 mg in 100 mls @ 33.333 mls/hr IVPB ONCE ONE Stop: 12/28/17 13:19 Metoclopramide HCl (Reglan Iv*) 10 mg IV QID [facility] Last Admin: 12/28/17 09:04 Dose: 10 mg Morphine Sulfate (Morphine Inj (Syringe)*) 2 mg IV Q4H PRN PRN Reason: PAIN Last Admin: 12/27/17 07:47 Dose: 2 mg Ondansetron HCl (Zofran Inj*) 4 mg IV Q4H PRN PRN Reason: NAUSEA/VOMITING Last Admin: 12/26/17 13:01 Dose: 4 mg Oxycodone HCl (Oxycodone Oral.Soln*) 20 mg .SEE ORDER Q4H PRN PRN Reason: PAIN Last Admin: 12/28/17 07:27 Dose: 20 mg Pantoprazole Sodium (Protonix Iv*) 40 mg IV DAILY [facility] Last Admin: 12/28/17 09:04 Dose: 40 mg Pharmacy Profile Note (Fentanyl Patch Check Q Shift) 1 note N/A 0700,1900 [facility] Last Admin: 12/28/17 07:04 Dose: 1 note Senna (Senokot Tab*) 1 tab PO BEDTIME [facility] Last Admin: 12/27/17 22:07 Dose: 1 tab Warfarin Sodium (Coumadin Tab(*)) 4 mg PO DAILY@1700 [facility] PRN Reason: Protocol Objective: [] Vital Signs Temp Pulse Resp BP Pulse Ox 98.2 F 142 18 103/68 96 12/28/17 07:49 12/28/17 07:49 12/28/17 09:32 12/28/17 07:49 12/28/17 07:49 HEENT: mouth moist, no lesions No JVD Irreg S1S2 in 150s crackles at base Increased BS, NT Ext Tr edema Neuro - baeline MS, non focal. Assessment: []62 year old with esophageal cancer and a-fib. Cycle 1 Carbo/Taxol with admission for impacted bowl, dehydration and electrolyte disturbance as well as pancytopenia. Improving today with normal bowl function and increased blood counts. He has had a-fib with increased HR. Plan: []1. Anemia improved and will follow CBC 2. Pancytopenia. Improving, Neupogen until ANC > 1000 2. GI. Improved. - Miralax + Zee/Colace - Start TF w/ Osmolite at 40 cc/hr - Clear liquid diet. - Reglan to 10 po q6 prn. 3. FEN. Fluid overload - Stop IVF, Lasix 20 IV x 1 - Replete Mg today 4 gm IV - Follow potassium 4. Cardiac. Increased HR - Amiodarone per PEG - Metoprolol 25 mg q 6 po and 5 mg IV prn for HR > 150 - Cardiology follow up today 5. ID. Fever, Cefepime until ANC > 1500 and cultures pending. 6. Pain. Stable w/ Fentanyl at 25 mcg 7. Anicoagulation. Starting Coumadin and Lovenox today, d/c on Coumadin.
[2017-12-28] MEDS ORDERED: Metoclopramide LIQ* 10 MG/10 ML ORAL.SOLN PEG TUBE PRN (10:31)
[2017-12-28 11:42] LABS: EGFR Non-African American 169.6 (>60)
[2017-12-28] MEDS ORDERED: Digoxin IV* 0.5 MG/2 ML AMP (0.25 MG/ML) IV SLOW PU ONE ×3 (11:45→21:01)
[2017-12-28] MEDS ORDERED: Potassium Chloride LIQUID* 20 MEQ PACKET PO ONE (11:47)
--- NOTE | 2017-12-28 12:06 | PN ---
Subjective Date of Service: 12/28/17 Interval History: f/u atrial fibrillation Patient had been in sinus rhythm, now back in rapid atrial fibrillation rate 140 -150's at rest Patient feels weakened he attributes to not being able to eat No cp or palpitations Medications Active Medications: Amiodarone HCl (Cordarone Tab*) 200 mg G TUBE DAILY [facility] Last Admin: 12/28/17 09:04 Dose: 200 mg Docusate Sodium (Colace Liq*) 100 mg PO BEDTIME [facility] Enoxaparin Sodium (Lovenox(*)) 80 mg SUBCUT Q12H [facility] Last Admin: 12/28/17 09:03 Dose: 80 mg Fentanyl (Duragesic Patch 25 Mcg/Hr*) 25 mcg TRANSDERM Q72H [facility] Last Admin: 12/27/17 10:07 Dose: 25 mcg Filgrastim-Sndz (Zarxio*) 480 mcg SUBCUT DAILY [facility] Stop: 01/01/18 08:59 Last Admin: 12/28/17 09:04 Dose: 480 mcg Heparin Sodium (Porcine) (Heparin Flush Port (Ivad)) 5 ml FLUSH DAILY [facility] PRN Reason: Protocol Last Admin: 12/28/17 09:04 Dose: Not Given Cefepime HCl (Maxipime 2 Gm In Dextrose Duplex (*)) 2 gm in 50 mls @ 100 mls/ hr IV Q8H [facility] Last Admin: 12/28/17 07:28 Dose: 100 mls/hr Magnesium Sulfate (Magnesium Sulf 4 Gm/100 Ml Iv*) 4,000 mg in 100 mls @ 33.333 mls/hr IVPB ONCE ONE Stop: 12/28/17 13:19 Last Admin: 12/28/17 11:26 Dose: 33.333 mls/hr Metoclopramide HCl (Reglan Liq*) 10 mg PEG TUBE Q6H PRN PRN Reason: NAUSEA Metoprolol Tartrate (Lopressor Tab*) 25 mg PEG TUBE QID [facility] Morphine Sulfate (Morphine Inj (Syringe)*) 2 mg IV Q4H PRN PRN Reason: PAIN Last Admin: 12/27/17 07:47 Dose: 2 mg Ondansetron HCl (Zofran Inj*) 4 mg IV Q4H PRN PRN Reason: NAUSEA/VOMITING Last Admin: 12/26/17 13:01 Dose: 4 mg Oxycodone HCl (Oxycodone Oral.Soln*) 20 mg .SEE ORDER Q4H PRN PRN Reason: PAIN Last Admin: 12/28/17 07:27 Dose: 20 mg Pantoprazole Sodium (Protonix Iv*) 40 mg IV DAILY [facility] Last Admin: 12/28/17 09:04 Dose: 40 mg Pharmacy Profile Note (Fentanyl Patch Check Q Shift) 1 note N/A 0700,1900 [facility] Last Admin: 12/28/17 07:04 Dose: 1 note Senna (Senokot Tab*) 1 tab PO BEDTIME [facility] Last Admin: 12/27/17 22:07 Dose: 1 tab Warfarin Sodium (Coumadin Tab(*)) 4 mg PEG TUBE DAILY@1700 [facility] PRN Reason: Protocol Objective Vital Signs: Temp Pulse Resp BP Pulse Ox 98.2 F 142 18 103/68 96 12/28/17 07:49 12/28/17 07:49 12/28/17 09:32 12/28/17 07:49 12/28/17 07:49 Oxygen Devices in Use Now: None Appearance: ill appearing, conversant Ears/Nose/Mouth/Throat: Clear Oropharnyx, Mucous Membranes Moist Neck: NL Appearance and Movements; NL JVP, Trachea Midline Respiratory: Symmetrical Chest Expansion and Respiratory Effort Cardiovascular: - - irregularly irreuglar, tachycardic, no isgnificant murmur, mild edema Abdominal: NL Sounds; No Tenderness; No Distention Extremities: No Clubbing, Cyanosis Skin: No Rash or Ulcers Neurological: - - lethargic, does not cooperate with exam Laboratory Results: 12/28/17 05:55 12/28/17 11:15 mg 1.6 Total Bilirubin 0.80 mg/dL (0.2-1.0) 12/28/17 11:15 AST 11 U/L (13-39) L 12/28/17 11:15 ALT 12 U/L (7-52) 12/28/17 11:15 Alkaline Phosphatase 65 U/L (34-104) 12/28/17 11:15 Total Protein 4.8 g/dL (6.4-8.9) L 12/28/17 11:15 Albumin 2.0 g/dL (3.2-5.2) L 12/28/17 11:15 Globulin 2.8 g/dL (2-4) 12/28/17 11:15 Albumin/Globulin Ratio 0.7 (1-3) L 12/28/17 11:15 Diagnostic Imaging: Cardiac Testing: Echocardiogram - (09/16/2017) This was a limited study for assessment of right heart size and function. Normal LV systolic function with no regional wall motion abnormalities and estimated LVEF 55-60%. Normal right chowdhury size and RV contractility. Trace pericardial effusion. Echocardiogram - (09/17/2017) Bubble study is inconclusive of interatrial shunt/PFO. LV cavity size and thickness is normal. No regional wall motion abnormalities. No evidence of LVOT obstruction. Global systolic function is normal, with an estimated EF 60-65%. Echocardiogram - (10/28/2017) Patient was in afib/flutter during the study with rapid heart rates. EF 55-60%. Mild MR. Small pericardial effusion. Pleural effusion is noted. Assuming RA pressure of 5 mm Hg, estimated pulmonary artery systolic pressure is 31 mmHg ( normal). Compared to recent TTE's from 09/2017, pleural effusion is now present. CT C/A/P 12/10/2017: findings consistent with esophageal carcinoma mild mediastinal adenopathy new or increasing b/l effusios R liver lobe and retroperitoneal adenopathy unchanged from prior multiple l3/l4 and new l1 bony lytic lesions asymmetric right changes enlargmeent under scapula may represent metastatic disease EKG Data: 12/25/2017: Rapid afib 147 bpm, rate related st changes 12/16/2017: NSR, LAE, rsr' v1/v2 Assessment/Plan For atrial fibrillation, I would recommend: - Continue amiodarone 200 mg PO daily for rate/rhythm control - metoprolol now started through G tube 25 mg PO QID for rate control - Replace K and Mg to 4 and 2 respectively at least, he may again convert to NSR with this. IV magnesium being given. Give 60 or K through g tube x 1 now (ordered) - Give 250 mcg IV digoxin x 1 now to help short term with rate control (ordered) - Continue warfarin and other medical care per Hematology Thank you for allowing me to participate in the cardiovascular care of this patient. Please do not hesitate to contact me with questions or concerns.
[2017-12-28] MEDS: Metoprolol Tartrate TAB* 25 MG PEG TUBE SCH ×3 (12:15→20:40)
[2017-12-28] MEDS ORDERED: Metoprolol Tartrate TAB* 25 MG PO SCH (13:00)
[2017-12-28] MEDS ORDERED: Warfarin TAB(*) 4 MG PO SCH (17:00)
[2017-12-28] MEDS ORDERED: Warfarin TAB(*) 4 MG PEG TUBE SCH (17:00)
[2017-12-28] MEDS: Ondansetron INJ* 2 MG/ML VIAL IV PRN (18:57)
[2017-12-28] MEDS: Polyethylene Glycol 3350* 17 GM PACKET PO PRN (20:40)
[2017-12-28] MEDS: Docusate LIQ* 100 MG/10 ML UDC PO SCH (20:40)
[2017-12-28] MEDS: Senna TAB PO SCH (20:41)
[2017-12-29] MEDS: Cefepime 2 GM in Dextrose(*) 2 GM/50 ML BAG IV SCH ×2 (00:30→10:38)
[2017-12-29] MEDS: Morphine INJ* 2 MG/ML 1 ML CARPUJECT IV PRN ×2 (00:38→05:22)
[2017-12-29] MEDS: Ondansetron INJ* 2 MG/ML VIAL IV PRN (05:22)
[2017-12-29 06:21] LABS: Hematocrit 31 % (42-52); Hemoglobin 10.5 g/dl (14.0-18.0); Mean Corpuscular HGB Conc 34 g/dl (31-36); Mean Corpuscular Hemoglobin 28 pg (27-31); Mean Corpuscular Volume 83 fL (80-94); Mean Platelet Volume 9 um3 (7.4-10.4); Platelet Count 83 10^3/ul (150-450); Red Blood Count 3.77 10^6/ul (4.0-5.4); Red Cell Distribution Width 17 % (10.5-15)
[2017-12-29 06:22] LABS: ABS Basophils 0 10^3/ul (0-0.2); ABS Eosinophils 0 10^3/ul (0-0.6); ABS Lymphocytes 0.2 10^3/ul (1.0-4.8); ABS Monocytes 0.6 10^3/ul (0-0.8); ABS Neutrophils 2.1 10^3/ul (1.5-7.7); INR 1.76 (0.77-1.02)
[2017-12-29 06:38] LABS: EGFR Non-African American 151.9 (>60)
[2017-12-29 06:49] LABS: ABS Nucleated RBC 0 10^3/ul; Eosinophil % 0.7 % (0-6); Lymphocyte % 6.8 % (25-47); Nucleated Red Blood Cells % 0.3
[2017-12-29] MEDS: fentaNYL Patch Check Q Shift 1 NOTE SCH ×2 (06:53→19:21)
[2017-12-29] MEDS ORDERED: Warfarin TAB(*) 4 MG PEG TUBE SCH (09:31)
[2017-12-29] MEDS ORDERED: NS 0.9% 1000 ML* 1,000 ML IV SCH (09:45)
[2017-12-29] MEDS ORDERED: Metoclopramide LIQ* 10 MG/10 ML ORAL.SOLN PO PRN (09:51)
[2017-12-29] MEDS ORDERED: Magnesium Sulf 4 GM/100 ML IV* 4,000 MG/100 ML BAG IVPB ONE (09:59)
--- NOTE | 2017-12-29 09:59 | PN ---
Progress Note - Progress Note Date of Service: 12/29/17 SOAP: Subjective: []Better today but did vomit last night and tube feeds held. He has been better since. He thinks it was the soup. Swallowing has been better. No fevers. He has not walked, just out of bed to chair. He wants to go home and is frustrated with being in hospital. After extensive discussion he agreed to stay until tomorrow. Amiodarone HCl (Cordarone Tab*) 200 mg G TUBE DAILY [facility] Last Admin: 12/28/17 09:04 Dose: 200 mg Docusate Sodium (Colace Liq*) 100 mg PO BEDTIME [facility] Last Admin: 12/28/17 20:40 Dose: 100 mg Enoxaparin Sodium (Lovenox(*)) 80 mg SUBCUT Q12H [facility] Last Admin: 12/28/17 20:40 Dose: 80 mg Fentanyl (Duragesic Patch 25 Mcg/Hr*) 25 mcg TRANSDERM Q72H [facility] Last Admin: 12/27/17 10:07 Dose: 25 mcg Heparin Sodium (Porcine) (Heparin Flush Port (Ivad)) 5 ml FLUSH DAILY [facility] PRN Reason: Protocol Last Admin: 12/28/17 21:45 Dose: 5 ml Cefepime HCl (Maxipime 2 Gm In Dextrose Duplex (*)) 2 gm in 50 mls @ 100 mls/ hr IV Q8H [facility] Last Admin: 12/29/17 00:30 Dose: 100 mls/hr Metoclopramide HCl (Reglan Liq*) 10 mg PO Q6H PRN PRN Reason: NAUSEA Metoprolol Tartrate (Lopressor Tab*) 25 mg PEG TUBE QID [facility] Last Admin: 12/28/17 20:40 Dose: 25 mg Morphine Sulfate (Morphine Inj (Syringe)*) 2 mg IV Q4H PRN PRN Reason: PAIN Last Admin: 12/29/17 05:22 Dose: 2 mg Oxycodone HCl (Oxycodone Oral.Soln*) 20 mg .SEE ORDER Q4H PRN PRN Reason: PAIN Last Admin: 12/28/17 20:41 Dose: 20 mg Pantoprazole Sodium (Protonix Iv*) 40 mg IV DAILY [facility] Last Admin: 12/28/17 09:04 Dose: 40 mg Pharmacy Profile Note (Fentanyl Patch Check Q Shift) 1 note N/A 0700,1900 [facility] Last Admin: 12/29/17 06:53 Dose: 1 note Polyethylene Glycol/Electrolytes (Miralax*) 17 gm PO DAILY PRN PRN Reason: CONSTIPATION Last Admin: 12/28/17 20:40 Dose: 17 gm Senna (Senokot Tab*) 1 tab PO BEDTIME [facility] Last Admin: 12/28/17 20:41 Dose: 1 tab Warfarin Sodium (Coumadin Tab(*)) 2 mg PEG TUBE DAILY@1700 [facility] PRN Reason: Protocol Objective: [] Vital Signs Temp Pulse Resp BP Pulse Ox 97.7 F 43 18 98/60 95 12/29/17 03:36 12/29/17 03:36 12/29/17 06:53 12/29/17 03:42 12/29/17 03:36 HEENT: mouth moist, no lesions No JVD RRR S1S2 at 80 bpm. crackles at base Increased BS, NT Ext Tr edema Neuro - baeline MS, non focal. Assessment: []62 year old with esophageal cancer and a-fib. Cycle 1 Carbo/Taxol with admission for impacted bowl, dehydration and electrolyte disturbance as well as pancytopenia. Hospital course complicated rapid a-fib. Today he is feeling close to baseline and wants to go home. Barriers at this point are ambulation and tolerating tube feeds. Plan: []1.Pancytopenia. Improved and Hgb stable. Stop neupogen. 2. GI. Did not tolerate tube feeds yesterday. - Will re-start today and see if he does better, avoid the soup. - Hold antibiotics - Stop Zofran and use Reglan 10 mg liq q 6 prn for nausea. - Continue PPI. - Miralax + Amalga/Colace 3. FEN. Aviod PEG based repletion with nausea - Mg today 4 gm IV - Follow potassium 4. Cardiac. Dig load yesterday and SR today. Follwed daily by Dr. Davidson and has appointment in clinic tomorrow he wants to keep. - Amiodarone, Metoprolol, Dig 5. ID. Fever, 1/4 Cx + GPB and suspect contaminant. Stop antibiotics 6. Pain. Stable w/ Fentanyl at 25 mcg. Stop IV morphine 7. Anicoagulation. INR increased to 1.76, will continue Lovenox today, decrease Coumadin to 2 mg qhs
[2017-12-29] MEDS: Enoxaparin(*) 80 MG/0.8 ML SYR SUBCUT SCH ×2 (10:04→21:17)
[2017-12-29] MEDS: Pantoprazole IV* 40 MG IV SCH (10:04)
[2017-12-29] MEDS: FILGRASTIM-SNDZ* 480 MCG/0.8 ML SYRINGE SUBCUT SCH (10:05)
[2017-12-29] MEDS: Amiodarone TAB* 200 MG G TUBE SCH (10:16)
[2017-12-29] MEDS: Metoprolol Tartrate TAB* 25 MG PEG TUBE SCH ×4 (10:16→21:17)
[2017-12-29] MEDS: Docusate LIQ* 100 MG/10 ML UDC PO SCH (21:16)
[2017-12-29] MEDS: Polyethylene Glycol 3350* 17 GM PACKET PO PRN (21:17)
[2017-12-29] MEDS: Senna TAB PO SCH (21:17)
[2017-12-30 05:37] LABS: INR 1.75 (0.77-1.02)
[2017-12-30] MEDS: fentaNYL Patch Check Q Shift 1 NOTE SCH (06:23)
[2017-12-30] MEDS: Metoprolol Tartrate TAB* 25 MG PEG TUBE SCH ×2 (09:13→12:37)
[2017-12-30] MEDS: Amiodarone TAB* 200 MG G TUBE SCH (09:13)
[2017-12-30] MEDS: oxyCODONE ORAL.SOLN* 5 MG/5 ML UDC PRN ×2 (09:15→13:11)
[2017-12-30] MEDS: Enoxaparin(*) 80 MG/0.8 ML SYR SUBCUT SCH (09:22)
[2017-12-30] MEDS: Pantoprazole IV* 40 MG IV SCH (09:24)
[2017-12-30] MEDS: fentaNYL PATCH 25 MCG/HR TRANSDERM SCH (09:28)
[2017-12-30 16:13] VITALS: BP 98/70
[2017-12-30] MEDS ORDERED: Warfarin TAB(*) 4 MG PEG TUBE SCH (17:00)
== END 2017-12-30 16:45 | disposition left against medical advice (07) | DRG 809 ==
LOC: MEDTELE 13:53
PROVIDERS: ADMIT Internal Medicine Hematology & Oncology; ATTEND Internal Medicine Hematology & Oncology
PROC: 30233N1 Transfusion of Nonautologous Red Blood Cells into Peripheral Vein, Percutaneous Approach (ICD-10-PCS; principal; 2017-12-25)
DX: D61.818 Other pancytopenia (principal); C15.9 Malignant neoplasm of esophagus, unspecified; I48.91 Unspecified atrial fibrillation; E87.1 Hypo-osmolality and hyponatremia; K56.49 Other impaction of intestine; Z93.1 Gastrostomy status; E86.0 Dehydration; I10 Essential (primary) hypertension; Z91.013 Allergy to seafood; Z79.01 Long term (current) use of anticoagulants; Z79.891 Long term (current) use of opiate analgesic; Z79.899 Other long term (current) drug therapy; Z86.711 Personal history of pulmonary embolism; Z86.718 Personal history of other venous thrombosis and embolism; F17.210 Nicotine dependence, cigarettes, uncomplicated; Z80.8 Family history of malignant neoplasm of other organs or systems; Z83.3 Family history of diabetes mellitus
CPT/HCPCS: 36415; 74019; 80053; 82271; 83735; 85025; 85060; 85610; 86850; 86900; 86901; 86922; 87040; 87205; 93005; 99223; 99233; A9270-GY; J0692; J1160; J1642; J1650; J1940; J1956; J2270; J2405; J2765; J3475; J3490; P9040; Q5101 ZA